=== PATIENT | male | born 1955 | race Caucasian/White ===

== ENCOUNTER 2024-02-02 16:15 | Observation (INO) | payer OTHER ==
[2024-02-02 17:22] LABS: #Basophils 0.04 10x3/uL (0.0-0.2); %Basophils 0.7 % (0.0-1.0); %Lymphocytes 23.7 % (21.0-51.0); %Monocytes 7.5 % (0.0-10.0); %Neutrophils 62.6 % (42.0-75.0); Hematocrit 42.7 % (42.0-52.0); Mean Corpuscular HGB CONC 32.8 g/dL (32.0-36.0); Mean Corpuscular Hemoglobin 30.5 pg (27.0-31.0); Mean Platelet Volume 9.2 fL (7.4-10.4); Platelet Count 190 10x3/uL (130-400); Red Blood Cell (RBC) Count 4.59 mill/uL (4.70-6.10)
[2024-02-02 17:50] LABS: Troponin I Less than 0.010 ng/mL (< 0.028)
[2024-02-02 17:52] LABS: ALT (SGPT) 24 U/L (8-55); AST (SGOT) 17 U/L (5-34); Albumin 3.9 g/dL (3.4-4.8); Alkaline Phosphatase 46 U/L (40-110); Anion Gap 15 mmol/L (10-20); BUN (Urea Nitrogen) 13 mg/dL (8.4-25.7); Bilirubin, Total 0.2 mg/dL (0.2-1.2); Calc. Creatinine Clearance 0 mL/min (70-130); Calcium 9.6 mg/dL (7.8-10.44); Carbon Dioxide 24 mmol/L (23-31); Chloride 107 mmol/L (98-107); Estimated GFR 100; Globulin 3.8 g/dL (2.4-3.5); Glucose 121 mg/dL (80-115); Potassium 4.1 mmol/L (3.5-5.1); Protein, Total 7.7 g/dL (5.8-8.1); Sodium 142 mmol/L (136-145)
[2024-02-02] MEDS ORDERED: HYDROcodone/Acetaminophen 5/325 mg Tablet ONE (18:48)
[2024-02-02] MEDS ORDERED: Aspirin Chewable 81 MG TAB ONE (18:48)
[2024-02-02 20:20] VITALS: BMI 43.7
[2024-02-02 20:43] LABS: Troponin I Less than 0.010 ng/mL (< 0.028)
[2024-02-02] MEDS ORDERED: Calcium Carbonate 500 MG ChewTAB PO PRN (22:31)
[2024-02-02] MEDS ORDERED: Acetaminophen 650 MG Suppository PR PRN (22:31)
[2024-02-02] MEDS ORDERED: Ondansetron ODT 4 MG TAB PO PRN (22:31)
[2024-02-02] MEDS ORDERED: Ondansetron PF 4 MG/2 ML Vial IVP PRN (22:31)
[2024-02-02] MEDS: Acetaminophen 325 MG TAB PO SCH (22:57)
[2024-02-02] MEDS ORDERED: Albuterol 2.5 MG (3 mL) NEB NEB PRN (23:15)
[2024-02-03 00:07] LABS: Troponin I Less than 0.010 ng/mL (< 0.028)
[2024-02-03 04:54] LABS: #Basophils 0.05 10x3/uL (0.0-0.2); %Basophils 1.3 % (0.0-1.0); %Eosinophils 5.5 % (0.0-10.0); %Lymphocytes 32.5 % (21.0-51.0); %Monocytes 7.6 % (0.0-10.0); %Neutrophils 52.6 % (42.0-75.0); Hematocrit 36.8 % (42.0-52.0); Mean Corpuscular HGB CONC 32.6 g/dL (32.0-36.0); Mean Corpuscular Hemoglobin 30.5 pg (27.0-31.0); Mean Corpuscular Volume 93.6 fL (78.0-98.0); Mean Platelet Volume 9.3 fL (7.4-10.4); Platelet Count 167 10x3/uL (130-400); Red Blood Cell (RBC) Count 3.93 mill/uL (4.70-6.10)
[2024-02-03 05:11] LABS: Anion Gap 13 mmol/L (10-20); BUN (Urea Nitrogen) 15 mg/dL (8.4-25.7); Calc. Creatinine Clearance 180 mL/min (70-130); Calcium 8.7 mg/dL (7.8-10.44); Carbon Dioxide 23 mmol/L (23-31); Chloride 107 mmol/L (98-107); Estimated GFR 103; Glucose 108 mg/dL (80-115); Potassium 4.3 mmol/L (3.5-5.1); Sodium 139 mmol/L (136-145)
[2024-02-03] MEDS: Empagliflozin 25 MG TAB PO SCH (07:59)
[2024-02-03] MEDS: Rosuvastatin 20 MG TAB PO SCH (07:59)
[2024-02-03] MEDS: Pioglitazone HCl 45 MG TAB PO SCH (07:59)
[2024-02-03] MEDS: Lisinopril 5 MG TAB PO SCH (07:59)
[2024-02-03] MEDS: Famotidine 20 MG TAB PO SCH (07:59)
[2024-02-03] MEDS: Metoprolol Tartrate 25 MG TAB PO SCH (07:59)
[2024-02-03] MEDS: Famotidine/PF 20 mg/2ml Vial SLOW IVP SCH (08:01)
[2024-02-03] MEDS ORDERED: Cyclobenzaprine 10 MG TAB PO PRN (09:49)
[2024-02-03] MEDS: HYDROcodone/Acetaminophen 10/325 mg Tablet PO SCH ×2 (11:15→15:49)
[2024-02-03] MEDS: glipiZIDE 5 MG TAB PO SCH (15:49)
[2024-02-03] MEDS: Butalbital 50 MG/Aspirin 325 MG/Caffeine 40 MG CAPSULE PO PRN (16:52)
[2024-02-03 19:09] LABS: Amphetamine Not Detected (NotDetected); Barbiturates Screen Detected (NotDetected); Benzodiazepine Screen Not Detected (NotDetected); Cocaine Metabolite Screen Not Detected (NotDetected); Methadone Not Detected (NotDetected); Methamphetamine Not Detected (NotDetected); Opiate Screen Detected (NotDetected); Oxycodone Screen Not Detected (NotDetected); Phencyclidine (PCP) Not Detected (NotDetected); THC/Cannabinoid Screen Not Detected (NotDetected); Tricyclic Screen Not Detected (NotDetected)
[2024-02-04 08:26] VITALS: TEMP 98
[2024-02-04 11:46] VITALS: BP 133/67
== END 2024-02-04 13:45 | disposition home or self-care (01) ==
LOC: ERS 16:15 → OBS 18:52
PROVIDERS: ADMIT Internal Medicine; ATTEND Hospitalist
DX: J96.01 Acute respiratory failure with hypoxia (principal); J44.9 Chronic obstructive pulmonary disease, unspecified; E11.9 Type 2 diabetes mellitus without complications; E66.01 Morbid (severe) obesity due to excess calories; I10 Essential (primary) hypertension; G47.33 Obstructive sleep apnea (adult) (pediatric); F17.200 Nicotine dependence, unspecified, uncomplicated; Z90.89 Acquired absence of other organs; Z90.49 Acquired absence of other specified parts of digestive tract; Z88.8 Allergy status to other drugs, medicaments and biological substances; Z88.0 Allergy status to penicillin; Z79.84 Long term (current) use of oral hypoglycemic drugs; Z79.51 Long term (current) use of inhaled steroids; Z79.899 Other long term (current) drug therapy
CPT/HCPCS: 71045; 80048; 80053; 80306; 83880 ×2; 84443; 84484 ×2; 85025 ×2; 85379; 93005; 94660 ×2; 99285; G0378 ×4; 36415